=== PATIENT | female | born 1945 | race Caucasian/White ===

== ENCOUNTER 2017-11-08 06:47 | Outpatient (CLI) | payer MEDICARE, BC | END 2017-11-08 06:48 | disposition home or self-care (01) | LOC: BICULT 06:47 | PROVIDERS: ATTEND Internal Medicine Gastroenterology | DX: K21.9 Gastro-esophageal reflux disease without esophagitis (principal); R10.9 Unspecified abdominal pain; R63.4 Abnormal weight loss; K80.20 Calculus of gallbladder without cholecystitis without obstruction | CPT/HCPCS: 76700 ==

== ENCOUNTER 2023-04-12 13:42 | Outpatient (CLI) | payer MEDICARE, BC | END 2023-04-12 13:43 | disposition home or self-care (01) | LOC: BICMAMMO 13:42 | PROVIDERS: ATTEND Family Medicine | DX: Z12.31 Encounter for screening mammogram for malignant neoplasm of breast (principal) | CPT/HCPCS: 77063; 77067 ==

== ENCOUNTER 2023-08-24 08:42 | Observation (INO) | payer MEDICARE, BC ==
[2023-08-24] MEDS ORDERED: Acetaminophen 650 MG Suppository PR PRN (11:37)
[2023-08-24] MEDS ORDERED: Clorazepate 3.75 MG TAB PO SCH (12:45)
[2023-08-24] MEDS: Azithromycin 500 MG in Sodium Chloride 0.9% 250 ML 250 ML IVPB SCH (13:27)
[2023-08-24] MEDS: Sodium Chloride 0.9% 1,000 ML IV SCH (13:29)
[2023-08-24 13:54] VITALS: BMI 31.4
[2023-08-24] MEDS ORDERED: Polyvinyl Alcohol 1.4%/Povidone 0.6% Opth Drops EA EYE PRN (15:52)
[2023-08-24] MEDS: cloNIDine 0.1 MG TAB PO SCH ×2 (16:47→20:00)
[2023-08-24] MEDS: Clorazepate 3.75 MG TAB PO SCH (17:09)
[2023-08-24] MEDS: Acetaminophen 325 MG TAB PO PRN (19:59)
[2023-08-24] MEDS ORDERED: cloNIDine 0.1 MG TAB PO SCH (21:00)
[2023-08-24] MEDS ORDERED: AZELAIC ACID TOP SCH (21:00)
[2023-08-25 05:11] LABS: Hematocrit 30.5 % (36.0-47.0); Hemoglobin 10.4 g/dL (12.0-16.0); Manual Diff?? YES; Mean Corpuscular HGB CONC 34.1 g/dL (32.0-36.0); Mean Corpuscular Hemoglobin 31.5 pg (27.0-31.0); Mean Corpuscular Volume 92.4 fl (78.0-98.0); Mean Platelet Volume 10.1 fL (7.4-10.4); Platelet Count 174 10x3/uL (130-400); RBC Distribution Width 12.5 % (11.5-14.5); White Blood Cell (WBC) Count 4.9 10x3/uL (4.8-10.8)
[2023-08-25 05:15] LABS: Delete Auto Diff?? YES
[2023-08-25 05:53] LABS: Anion Gap 9 mmol/L (10-20); BUN (Urea Nitrogen) 9 mg/dL (9.8-20.1); Calc. Creatinine Clearance 48 mL/min (70-130); Calcium 8.5 mg/dL (7.8-10.44); Carbon Dioxide 22 mmol/L (23-31); Chloride 107 mmol/L (98-107); Estimated GFR 50; Glucose 88 mg/dL (83-110); Potassium 3.5 mmol/L (3.5-5.1); Sodium 134 mmol/L (136-145)
[2023-08-25 06:12] LABS: Band 2 % (5-11); CellaVision Operator ID lab.abc; Eosinophils 6 % (0-10); Lymphocytes 28 % (21-51); Macrocytosis SLIGHT = 6-15 cells HPF (0-5); Metamyelocyte 1 % (0-0); Monocytes 2 % (0-10); Neutrophil 58 % (42-75); Platelet Adequacy Comment Platelets Normal; Reactive Lymphocytes 3 % (0-10); Smudge Cells 9.9 %; Total Cell Count 101
[2023-08-25] MEDS: Losartan 25 MG TAB PO SCH (08:59)
[2023-08-25] MEDS ORDERED: Losartan 25 MG TAB PO SCH (09:00)
[2023-08-25] MEDS: Enoxaparin 40 MG (0.4 mL) SYRINGE SC SCH (09:02)
[2023-08-25] MEDS: cefTRIAXone\\ROCEPHIN 2 GM in Sodium Chloride 0.9% 100 ML IVPB SCH (09:07)
[2023-08-25] MEDS: Clorazepate 3.75 MG TAB PO SCH (10:57)
[2023-08-25] MEDS ORDERED: hydrOXYzine 25 MG TAB PO PRN (11:36)
[2023-08-25] MEDS ORDERED: Hyoscyamine SL 0.125 MG TAB PO PRN (14:02)
[2023-08-25] MEDS: Calcium Carbonate 500 MG ChewTAB PO PRN (14:10)
[2023-08-25] MEDS: cloNIDine 0.1 MG TAB PO PRN (18:28)
[2023-08-26 08:08] VITALS: BP 154/70; TEMP 98.7
[2023-08-27] MEDS ORDERED: Clorazepate 3.75 MG TAB PO SCH (09:00)
== END 2023-08-26 13:32 | disposition home or self-care (01) ==
LOC: T4-A 10:48
PROVIDERS: ADMIT Family Medicine; ATTEND Internal Medicine
DX: N39.0 Urinary tract infection, site not specified (principal); J18.9 Pneumonia, unspecified organism; E87.1 Hypo-osmolality and hyponatremia; N17.9 Acute kidney failure, unspecified; F41.9 Anxiety disorder, unspecified; K21.9 Gastro-esophageal reflux disease without esophagitis; Z88.1 Allergy status to other antibiotic agents; Z88.2 Allergy status to sulfonamides; Z88.8 Allergy status to other drugs, medicaments and biological substances; Z91.018 Allergy to other foods; Z79.899 Other long term (current) drug therapy
CPT/HCPCS: 80048; 85025; 96374; 96375; 96376 ×2; G0378 ×3; J0456 ×2; 36415; J0696; J3490; J7050

== ENCOUNTER 2024-04-17 11:27 | Outpatient (CLI) | payer MEDICARE, BC | END 2024-04-17 11:28 | disposition home or self-care (01) | LOC: BICMAMMO 11:27 | PROVIDERS: ATTEND Nurse Practitioner Family | DX: Z12.31 Encounter for screening mammogram for malignant neoplasm of breast (principal) | CPT/HCPCS: 77063; 77067 ==

== ENCOUNTER 2025-04-20 09:58 | Outpatient (CLI) | payer MEDICARE, BC | END 2025-04-20 09:59 | disposition home or self-care (01) | LOC: BICMAMMO 09:58 | PROVIDERS: ATTEND Nurse Practitioner Family | DX: Z12.31 Encounter for screening mammogram for malignant neoplasm of breast (principal); Z85.828 Personal history of other malignant neoplasm of skin | CPT/HCPCS: 77063; 77067 ==